=== PATIENT | female | born 1975 | race Caucasian/White ===

== ENCOUNTER 2022-08-05 10:13 | Day surgery (SDC) | payer SELFPAY ==
[~2022-08-05] VITALS: Ht 172.7 cm; Wt 77.1 kg
[~2022-08-05 10:13] MED LIST: ALEVE220 M2 PO; LEXAPRO10 MG PO; LEXAPRO20 MG PO; LISINOPRIL5 MG PO; PEPCID20 MG PO
[2022-08-05 12:58] VITALS: BP 108/74
== END 2022-08-05 12:50 | disposition home or self-care (01) | DRG 395 ==
LOC: ENDO 10:13 → ORM 12:55 → ENDO 12:55 → ORM 13:15
PROVIDERS: ATTEND Internal Medicine Gastroenterology
PROC: 0DBP8ZX Excision of Rectum, Via Natural or Artificial Opening Endoscopic, Diagnostic (ICD-10-PCS; principal; 2022-08-05)
PROC: 0DBE8ZX Excision of Large Intestine, Via Natural or Artificial Opening Endoscopic, Diagnostic (ICD-10-PCS; 2022-08-05)
PROC: 0DB98ZX Excision of Duodenum, Via Natural or Artificial Opening Endoscopic, Diagnostic (ICD-10-PCS; 2022-08-05)
PROC: 0DB78ZX Excision of Stomach, Pylorus, Via Natural or Artificial Opening Endoscopic, Diagnostic (ICD-10-PCS; 2022-08-05)
DX: K62.1 Rectal polyp (principal); K62.89 Other specified diseases of anus and rectum; K29.50 Unspecified chronic gastritis without bleeding; K25.9 Gastric ulcer, unspecified as acute or chronic, without hemorrhage or perforation